=== PATIENT | male | born 1965 | race Hispanic/Latino ===

== ENCOUNTER → 2019-03-07 | Outpatient (CLI) | payer OTHER ==
[~2019-03-07] MED LIST: IOPAMIDOL 370 MG/ML 200 ML INFUS..BTL INJ ONE; SODIUM CHLORIDE 0.9% 250ML 250 ML ONE
[2019-03-07 08:22] LABS: BLOOD UREA NITROGEN 12 mg/dL (7-26); BUN/CREATININE RATIO 12 (6-25); CREATININE, SERUM 0.98 mg/dL (0.72-1.25); EST GLOMERULAR FILTRATION RATE > 60 ML/MIN (60-)
--- NOTE | 2019-03-07 11:01 | Diagnostic Imaging Report ---
EXAM: CT ABDOMEN AND PELVIS with and without IV CONTRAST DATE: 03/07/2019 Time stamp on Exam: 9:00 AM INDICATION: Hematuria COMPARISON: None TECHNIQUE: The abdomen and pelvis were scanned using a multidetector helical scanner. Coronal and sagittal reformations were obtained. Hematuria protocol was utilized. Low-dose technique was performed to maintain the lowest effective dose to the patient. IV Contrast: 150 cc of Isovue-370 Oral Contrast: None Radiation Dose: Total DLP 1298.39 mGy*cm Estimated effective dose: DLP x 0.015 x size factor FINDINGS: LOWER THORAX: There is a small hiatal hernia present. Left lower lobe calcified granuloma. LIVER: No masses BILIARY: There is a calcified gallstone. No ductal dilatation. SPLEEN: No masses PANCREAS: No masses ADRENALS: No nodules KIDNEYS: Symmetric perfusion. No enhancing masses. No hydronephrosis. Less than 1 cm in size right lower pole renal cyst. No filling defects within the renal collecting systems, ureters or bladder. GI TRACT: No distention, wall thickening or evidence of obstruction. Calcification within a normal-appearing appendix. VESSELS: Scattered vascular calcification. PERITONEUM/RETROPERITONEUM: No free air or fluid LYMPH NODES: No lymphadenopathy REPRODUCTIVE ORGANS: Unremarkable BLADDER: Unremarkable SOFT TISSUES: Unremarkable BONES: No suspicious bone lesions. IMPRESSION: 1. No evidence of renal stones, hydronephrosis or renal mass. 2. Cholelithiasis without evidence of cholecystitis. 3. Small hiatal hernia. Signed by: Dr. Albreto Multani DO on 03/07/2019 10:57 AM
== END ==
LOC: CT 07:21
PROVIDERS: ATTEND Urology
DX: R31.0 Gross hematuria (principal)
CPT/HCPCS: 36415; 74178; 82565; 84520; J7050; Q9967